=== PATIENT | female | born 1975 | race Two or more races ===

== ENCOUNTER 2018-05-13 08:49 | Emergency (ER) | payer OTHER ==
[~2018-05-13] VITALS: Ht 162.6 cm; Wt 86.2 kg
[~2018-05-13 08:49] MED LIST: AMBIEN10 MG PO; DOLOGESIC CAPLE1 TAB PO; GILPHEX TR TAB1 EACH PO; KLONOPIN2 MG/TAB PO; METOCLOPRAMIDE10 MG PO; NASONEX17 GM NS; PEPCID40 MG PO; PLAQUENIL 200MG; PROTONIX40 MG PO; PROVENTIL3 ML/2.5 M IH; ZANTAC300 MG PO; ZOFRAN4 MG PO
[2018-05-13] MEDS ORDERED: NEURONTIN600 MG PO (09:32)
[2018-05-13] MEDS ORDERED: ELAVIL PO (09:33)
[2018-05-13] MEDS ORDERED: TAMOXIFEN CITRA20 MG PO (09:34)
[2018-05-13] MEDS ORDERED: TROPOL PO (09:34)
== END 2018-05-13 12:32 | disposition home or self-care (01) ==
LOC: ER 08:49
DX: B37.3 Candidiasis of vulva and vagina (principal)

== ENCOUNTER 2019-03-13 19:16 | Emergency (ER) | payer OTHER ==
[~2019-03-13] VITALS: Ht 162.6 cm; Wt 77.1 kg
[~2019-03-13 19:16] MED LIST changes: +ELAVIL PO; +NEURONTIN600 MG PO; +TAMOXIFEN CITRA20 MG PO; +TROPOL PO
[2019-03-13] MEDS ORDERED: CENTANY30 GM NASAL (19:53)
[2019-03-13] MEDS ORDERED: DUI500 PO (19:53)
[2019-03-13] MEDS ORDERED: KETO10TA2 PO (19:53)
== END 2019-03-13 20:36 | disposition home or self-care (01) ==
LOC: ER 19:16
DX: L08.89 Other specified local infections of the skin and subcutaneous tissue (principal)

== ENCOUNTER 2020-02-04 13:57 | Emergency (ER) | payer OTHER ==
[~2020-02-04] VITALS: Ht 162.6 cm; Wt 80.7 kg
[~2020-02-04 13:57] MED LIST changes: +CENTANY30 GM NASAL; +DUI500 PO; +KETO10TA2 PO
== END 2020-02-04 22:58 | disposition home or self-care (01) ==
LOC: ER 13:57
DX: J06.9 Acute upper respiratory infection, unspecified (principal); Z03.818 Encounter for observation for suspected exposure to other biological agents ruled out; T50.B95S Adverse effect of other viral vaccines, sequela